=== PATIENT | female | born 1985 | race Caucasian/White ===

== ENCOUNTER 2023-03-02 10:35 | Emergency (ER) | payer OTHER, SELFPAY ==
[2023-03-02 10:51] VITALS: BP 120/94; PULSE 102; RESP 16; TEMP 36.6; O2SAT 100
--- NOTE | 2023-03-02 11:01 | ED.URI ---
HPI - URI/Sore Throat General Chief Complaint: Upper Respiratory Infection Stated Complaint: SINUS PRESSURE/DRAINAGE/SORE THROAT/STREP EXPOSURE Time Seen by Provider: 03/02/23 11:08 Source: patient and RN notes reviewed Mode of arrival: ambulatory Limitations: no limitations History of Present Illness HPI Narrative: 37-year-old female presents concern for sinus infection. Reports she is on Z-Db for 4 days and is not helping. She reports her doctor called her and Z-Db. She reports 1 week history of symptoms. Reports history of chronic sinus infections. She is not taking any other medications she reports sore worsening MD elicited complaint: cough and sore throat Related Data Allergies Allergy/AdvReac Type Severity Reaction Status Date / Time Sulfa (Sulfonamide Allergy Mild Rash Verified 03/02/23 10:46 Antibiotics) SHELLFISH Allergy Mild HIVES Uncoded 03/02/23 10:46 Review of Systems Review of Systems: CONSTITUTIONAL: Denies malaise, chills, sweats, or fever. EYES: Denies visual changes, redness, or discharge. ENT: Reports rhinorrhea, congestion, sinus pain, otalgia CARDIOVASCULAR: Denies chest pain, palpitations, or edema. RESPIRATORY: Reports cough. Denies dyspnea. GASTROINTESTINAL: Denies abdominal pain, nausea, vomiting, diarrhea SKIN: Denies rash or itching. MUSCULOSKELETAL: Denies myalgia. NEUROLOGIC: Denies headache. All systems reviewed & are unremarkable except as noted in HPI and below PMFSH Past Medical History Medical History Anxiety Asthma Bicornuate uterus Bronchitis Depression Hand, foot and mouth disease Heartburn HSV-1 (herpes simplex virus 1) infection Seasonal allergies Surgical History Surgical History H/O LEEP 2007 cervical dysplasia History of 06/01/16 History of colposcopy with cervical biopsy 2007 History of hysteroscopy 11/20/19 Hscope D&C ; irregular vaginal bleeding, endometrial abnormality, uterine prolapse History of robot-assisted laparoscopic hysterectomy 01/08/20 uterine prolapse Family History Family History Mother Diabetes mellitus Ovarian cancer Grandparent Diabetes mellitus maternal grandmother paternal grandmother Ovarian cancer maternal grandmother Father CHF (congestive heart failure) Social History Social History (Updated 10/27/22 @ 08:18 by Shantell Roberts [facility]) Smoking status: Never smoker Alcohol intake: current Drinks per week: 2 Substance use: current Substance use type: marijuana Other substance usage details: daily Lack of Transportation: No Lack of Food: Never True Current Housing: I Have Housing Concerned About Future Housing: No Difficulty Paying Gas/Electric Bills: No Difficulty Paying for Meds: No Currently Unemployed: No Education: High School Diploma/GED Difficulty w/ Childcare or Family Care: No Living arrangements: other Additional living arrangements comments: spouse Occupation/Education: occupation 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 There is no relevant family history pertinent to the presenting complaint Exam Narrative: GENERAL: Well-appearing, well-nourished, and in no acute distress. HEAD: Normocephalic EYES: PERRLA, conjunctivae clear ENT: Nares clear, turbinates edematous and erythematous. Mucous membranes moist. TM pearly [place]ingo with dull light reflex bilaterally; no tragal tenderness. Oropharynx not erythematous without lesions. Tonsils not enlarged and without exudate, no drooling, no hoarseness, no trismus, uvula
== END 2023-03-02 11:22 | disposition home or self-care (01) ==
PROVIDERS: Emergency Provider Nurse Practitioner; PCP Family Medicine
DX: J32.9 Chronic sinusitis, unspecified (principal); F12.90 Cannabis use, unspecified, uncomplicated; J45.909 Unspecified asthma, uncomplicated; R12 Heartburn; F41.9 Anxiety disorder, unspecified
CPT/HCPCS: 99213; G0463

== ENCOUNTER 2023-05-25 11:13 | Emergency (ER) | payer OTHER, SELFPAY ==
[2023-05-25 11:21] VITALS: BP 140/100; PULSE 118; RESP 18; TEMP 37; O2SAT 99
--- NOTE | 2023-05-25 11:22 | ED.URI ---
HPI - URI/Sore Throat General Chief Complaint: Upper Respiratory Infection Stated Complaint: Sore Throat;Bodyaches Time Seen by Provider: 05/25/23 11:22 Source: patient, RN notes reviewed and old records reviewed Mode of arrival: ambulatory Limitations: no limitations History of Present Illness HPI Narrative: 38-year-old female presents to [facility] with complaint of dry cough for 1 month that has become productive over the past 2 days with clear sputum. Pa steph endorses left ear pressure and headache for 2 days ago. patient denies p.m. H and endorses sulfa allergy. Patient able to tolerate fluids by mouth Related Data Home Medications Medication Instructions Recorded Confirmed No Home Medications 05/25/23 05/25/23 Allergies Allergy/AdvReac Type Severity Reaction Status Date / Time Sulfa (Sulfonamide Allergy Mild Rash Verified 05/25/23 11:33 Antibiotics) SHELLFISH Allergy Mild HIVES Uncoded 03/02/23 10:46 Review of Systems Review of Systems: All systems reviewed & are unremarkable except as noted in HPI and below Constitutional: Constitutional: Reports no additional constitutional complaints Eyes: Eyes: Reports no additional eye complaints ENT: Reports system reviewed and no additional complaints, except as documented Cardiovascular: Cardiovascular: Reports no additional cardiovascular complaints, Denies chest pain and Denies dyspnea Respiratory: Respiratory: Reports no additional respiratory complaints, Denies chest congestion, Reports cough and Denies dyspnea Musculoskeletal: Musculoskeletal: Reports no additional musculoskeletal complaints Neurologic: Reports system reviewed and no additional complaints, except as documented Psychiatric: Psychiatric: Reports no additional psychiatric complaints [facility] Past Medical History Medical History Anxiety Asthma Bicornuate uterus Bronchitis Depression Hand, foot and mouth disease Heartburn HSV-1 (herpes simplex virus 1) infection Seasonal allergies Surgical History Surgical History H/O LEEP 2007 cervical dysplasia History of 06/01/16 History of colposcopy with cervical biopsy 2007 History of hysteroscopy 11/20/19 Hscope D&C ; irregular vaginal bleeding, endometrial abnormality, uterine prolapse History of robot-assisted laparoscopic hysterectomy 01/08/20 uterine prolapse Family History Family History Mother Diabetes mellitus Ovarian cancer Grandparent Diabetes mellitus maternal grandmother paternal grandmother Ovarian cancer maternal grandmother Father CHF (congestive heart failure) Social History Social History (Updated 10/27/22 @ 08:18 by Shantell Roberts [facility]) Smoking status: Never smoker Alcohol intake: current Drinks per week: 2 Substance use: current Substance use type: marijuana Other substance usage details: daily Lack of Transportation: No Lack of Food: Never True Current Housing: I Have Housing Concerned About Future Housing: No Difficulty Paying Gas/Electric Bills: No Difficulty Paying for Meds: No Currently Unemployed: No Education: High School Diploma/GED Difficulty w/ Childcare or Family Care: No Living arrangements: other Additional living arrangements comments: spouse Occupation/Education: occupation 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 There is no relevant family history pertinent to the patient complaint. Exam Const: General: cooperative, healthy appearing, comfortable, no acu
[2023-05-25 11:48] VITALS: BP 113/88
== END 2023-05-25 12:07 | disposition home or self-care (01) ==
PROVIDERS: Emergency Provider Nurse Practitioner Family
DX: J40 Bronchitis, not specified as acute or chronic (principal); Z20.822 Contact with and (suspected) exposure to COVID-19; F12.90 Cannabis use, unspecified, uncomplicated; J45.909 Unspecified asthma, uncomplicated
CPT/HCPCS: 87081; 87426; 87804; 87880; 99213; G0463

== ENCOUNTER 2024-03-10 09:17 | Emergency (ER) | payer OTHER, SELFPAY ==
--- NOTE | 2024-03-10 09:18 | ED_ITS ---
HPI - URI/Sore Throat General Chief Complaint: Upper Respiratory Infection Stated Complaint: Sore Throat Time Seen by Provider: 03/10/24 09:18 Source: patient Mode of arrival: ambulatory Limitations: no limitations History of Present Illness HPI Narrative: Siobhan is a 38-year-old female patient presenting to the clinic today with complaints of a 2 day history of a sore throat and slight cough. She denies any fevers, runny nose, or congestion. She denies any chest pain or shortness of breath. Possible exposure to strep over the weekend. MD elicited complaint: sore throat and nasal congestion Related Data Home Medications Medication Instructions Recorded Confirmed No Home Medications 03/10/24 03/10/24 Allergies Allergy/AdvReac Type Severity Reaction Status Date / Time Sulfa (Sulfonamide Allergy Mild Rash Verified 03/10/24 09:25 Antibiotics) SHELLFISH Allergy Mild HIVES Uncoded 03/10/24 09:25 Review of Systems Review of Systems: Pertinent positives per HPI. Patient denies any fever, chills, rash, headache, visual changes, dizziness, cough, shortness of breath, chest pain, palpitations, nausea, vomiting, diarrhea, constipation, abdominal pain, or any urinary issues. [facility] Past Medical History Medical History Anxiety Asthma Bicornuate uterus Bronchitis Depression Hand, foot and mouth disease Heartburn HSV-1 (herpes simplex virus 1) infection Seasonal allergies Surgical History Surgical History H/O LEEP 2007 cervical dysplasia History of 06/01/16 History of colposcopy with cervical biopsy 2007 History of hysteroscopy 11/20/19 Hscope D&C ; irregular vaginal bleeding, endometrial abnormality, uterine prolapse History of robot-assisted laparoscopic hysterectomy 01/08/20 uterine prolapse Family History Family History Mother Diabetes mellitus Ovarian cancer Grandparent Diabetes mellitus maternal grandmother paternal grandmother Ovarian cancer maternal grandmother Father CHF (congestive heart failure) Social History Social History Smoking status: Never smoker Alcohol intake: current Drinks per week: 2 Substance use: current Substance use type: marijuana Other substance usage details: daily Lack of Transportation: No Lack of Food: Never True Current Housing: I Have Housing Concerned About Future Housing: No Difficulty Paying Gas/Electric Bills: No Difficulty Paying for Meds: No Currently Unemployed: No Education: High School Diploma/GED Difficulty w/ Childcare or Family Care: No Living arrangements: other Additional living arrangements comments: spouse Occupation/Education: occupation 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 There is no relevant family history pertinent to the patient complaint. Exam Narrative: General: Well-developed, well nourished, in no apparent distress Head: Normocephalic, atraumatic Eyes: Pupils equally round and reactive to light bilaterally, EOM intact, sclera and conjunctive clear, no discharge, lids normal Ears: TMs intact and clear, ear canals clear, no drainage, grossly hearing normal. Nose: Nares patent, no discharge, no inflammation, no sinus tenderness. Mouth: Oral pharynx mildly red without lesions or masses, good dentition, MMM. Neck: Supple, trachea midline, no enlargement of anterior or posterior cervical nodes, no thyroid masses or goiter palpable. Cardio: Regular rate and rhythm, s1 and s2 normal, no murmur appreciated. Resp: Clear to auscultation bilaterally, no rhonchi, rales, wheezing or rubs Course Course Emergency Course: Portions of this record may have been created with voice recognition software. Level of Care: Express Care Visit Vital Signs Vital signs: Vital signs reviewed MDM - URI/Sore Throat MDM Narrative Medical decision making narrative: At the time of visit patient is resting comfortably on the exam table. Patient appears to be nontoxic. Labs: Strep test was obtained and negative in the clinic today. Plan: I suspect patient has viral pharyngitis. We will send strep for culture. Supportive measures were discussed with the patient and they voiced understanding discharge instructions and agrees to treatment plan. Return precautions reviewed Differential Diagnosis Differential diagnosis: Likely upper respiratory infection, otitis media, sinusitis, viral infection, bronchitis, influenza, pharyngitis and other (COVID) Discharge Plan Discharge Clinical Impression: Pharyngitis Qualifiers: Pharyngitis/tonsillitis etiology: unspecified etiology Qualified Code(s): J02.9 - Acute pharyngitis, unspecified Patient Disposition: Home, Self-Care Condition: Stable Instructions: Antibiotic Form, Pharyngitis (ED) Additional Instructions: Strep test was negative in the clinic today. We will send strep for culture and if this comes back positive we will contact you and place you on antibiotics at that time Increase fluids and stay well hydrated Tylenol/motrin for pain/fever Flonase and OTC antihistamines as directed Vicks vapor rub to open sinuses Sinus rinses for congestion Cepacol spray, cough drops, throat lozenges, warm tea with honey/lemon, gargle salt water to soothe throat BRAT diet for diarrhea Clear liquids x 24 hours then advance as tolerated for nausea/vomiting Go to the ED if you develop a worsening in your condition- high fever not controlled by Tylenol or Motrin, dehydration, weakness, lethargy, shortness of breath, or chest pain. Follow up with your PCP in 3-5 days if symptoms persist. Prescriptions: No Action acyclovir 400 mg tablet 400 mg PO Follow-up/Referrals: UNKNOWN,DOCTOR [Non-Staff] - Stand Alone Forms: Work/School Release IP Time of Disposition: 09:36 Quality NIHSS Nursing Documentation ED NIHSS nursing documentation: reviewed/agree
[2024-03-10 09:24] VITALS: BP 123/89; PULSE 92; RESP 18; TEMP 36.2; O2SAT 98
[2024-03-10 09:26] VITALS: BP 123/89; PULSE 92; RESP 18; TEMP 36.2; O2SAT 98
[2024-03-10 09:37] LABS: EDSTREPNEGPOS1 Negative (Negative)
== END 2024-03-10 09:38 | disposition home or self-care (01) ==
PROVIDERS: Emergency Provider Nurse Practitioner Family
DX: J02.9 Acute pharyngitis, unspecified (principal); J45.909 Unspecified asthma, uncomplicated; F12.90 Cannabis use, unspecified, uncomplicated
CPT/HCPCS: 87081; 87880; 99213; G0463

== ENCOUNTER 2025-01-30 10:59 | Emergency (ER) | payer OTHER, SELFPAY ==
--- NOTE | 2025-01-30 11:02 | ED.URI ---
HPI - URI/Sore Throat General Chief Complaint: Upper Respiratory Infection Stated Complaint: SORE THROAT/FEVER/CHILLS Time Seen by Provider: 01/30/25 11:02 Source: patient Mode of arrival: ambulatory Limitations: no limitations History of Present Illness HPI Narrative: Siobhan is a 31-year-old female patient presenting to the clinic today with complaints of sore throat, fevers, and chills x1 day. She reports symptoms started yesterday. Has taken Tylenol/ibuprofen for her symptoms. Highest fever was 101? F. States she has recently been in the hospital with her grandmother who was on hospice and also states that strep is going around in the kids school. Denies any chest pain or shortness of breath. Related Data Home Medications ?Medication ?Instructions ?Recorded ?Confirmed ?Last Taken ?Type phentermine 37.5 mg capsule 37.5 mg PO DAILY 11/05/24 11/05/24 Unknown History acyclovir 400 mg tablet mg 01/30/25 Unknown History Allergies Allergy/AdvReac Type Severity Reaction Status Date / Time Sulfa (Sulfonamide Allergy Mild Rash Verified 11/05/24 08:25 Antibiotics) SHELLFISH Allergy Mild HIVES Uncoded 11/05/24 08:25 Review of Systems Review of Systems: Pertinent positives per HPI. Patient denies any fever, chills, rash, headache, visual changes, dizziness, cough, shortness of breath, chest pain, palpitations, nausea, vomiting, diarrhea, constipation, abdominal pain, or any urinary issues. PMFSH Past Medical History Medical History Hyperlipidemia Seasonal allergies Hand, foot and mouth disease Bronchitis HSV-1 (herpes simplex virus 1) infection Heartburn Bicornuate uterus Depression Asthma Anxiety Surgical History Surgical History History of hysteroscopy 11/20/19 Hscope D&C ; irregular vaginal bleeding, endometrial abnormality, uterine prolapse H/O LEEP 2007 cervical dysplasia History of colposcopy with cervical biopsy 2007 History of 06/01/16 History of robot-assisted laparoscopic hysterectomy 01/08/20 uterine prolapse Family History Family History Mother Diabetes mellitus Ovarian cancer Grandparent Diabetes mellitus maternal grandmother paternal grandmother Ovarian cancer maternal grandmother Father CHF (congestive heart failure) Social History Social History Smoking status: Never smoker Second hand tobacco smoke exposure: No Alcohol intake: former Drinks per week: 2 Substance use: current Substance use type: marijuana Other substance usage details: gummies 2-3 times a week Do You Feel Safe in your Home?: Yes Lack of Transportation: No Lack of Food: Never True Current Housing: I Have Housing Concerned About Future Housing: No Difficulty Paying Gas/Electric Bills: No Difficulty Paying for Meds: No Currently Unemployed: No Education: High School Diploma/GED Difficulty w/ Childcare or Family Care: No Living arrangements: with family Additional living arrangements comments: spouse Occupation/Education: occupation 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 There is no relevant family history pertinent to the patient complaint. Exam Narrative: General: Well-developed, well nourished, in no apparent distress Head: Normocephalic, atraumatic Eyes: Pupils equally round and reactive to light bilaterally, EOM intact, sclera and conjunctive clear, no discharge, lids normal Ears: TMs intact and clear, ear canals clear, no drainage, grossly hearing normal. Nose: Nares patent, no discharge, no inflammation, no sinus tenderness. Mouth: Oral pharynx red without lesions or masses, good dentition, MMM. Neck: Supple, trachea midline, enlargement and tenderness of anterior cervical nodes, no thyroid masses or goiter palpable. Cardio: Regular rate and rhythm, s1 and s2 normal, no murmur appreciated. Resp: Clear to auscultation bilaterally, no rhonchi, rales, wheezing or rubs Course Course Emergency Course: Portions of this record may have been created with voice recognition software. Level of Care: Express Care Visit Vital Signs Vital signs: Vital Signs Temperature 36.6 C 01/30/25 11:13 Pulse Rate 103 H 01/30/25 11:13 Respiratory Rate 16 01/30/25 11:13 Blood Pressure 117/92 H 01/30/25 11:13 Pulse Oximetry 100 01/30/25 11:13 Temperature 36.6 C 01/30/25 11:13 Pulse Rate 103 H 01/30/25 11:13 Respiratory Rate 16 01/30/25 11:13 Blood Pressure 117/92 H 01/30/25 11:13 Pulse Oximetry 100 01/30/25 11:13 Vital signs reviewed MDM - URI/Sore Throat MDM Narrative Medical decision making narrative: At the time of visit patient is resting comfortably on the exam table. Patient appears to be nontoxic. Complaints of sore throat, fevers, and chills x1 day. She reports symptoms started yesterday. Has taken Tylenol/ibuprofen for her symptoms. Highest fever was 101? F. States she has recently been in the hospital with her grandmother who was on hospice and also states that strep is going around in the kids school. Denies any chest pain or shortness of breath. On exam patient has bilateral TMs clear and intact, no nasal drainage, oropharynx red, tenderness to palpation over the cervical lymph nodes with mild cervical lymph node swelling, heart rates regular rate and rhythm, lung sounds clear. Strep, COVID, and influenza test ordered. Labs: Strep test was negative in the clinic today. We will send it for culture. COVID and influenza testing was negative as well. Plan: I suspect patient has viral pharyngitis. We will send strep for culture. Supportive measures were discussed with the patient and they voiced understanding discharge instructions and agrees to treatment plan. Return precautions reviewed Differential Diagnosis Differential diagnosis: Likely upper respiratory infection, otitis media, sinusitis, viral infection, bronchitis, influenza, pharyngitis and other (COVID) Discharge Plan Discharge Clinical Impression: Acute viral pharyngitis Patient Disposition: Home Condition: Stable Instructions: Antibiotic Form, Pharyngitis (ED) Additional Instructions: Strep test was negative in the clinic today. We will send strep for culture if this comes back positive we will contact him place you on antibiotics at that time. COVID and influenza testing was negative. No signs of bacterial infection in the clinic today. Increase fluids and stay well hydrated May take Tylenol or motrin as directed on bottle for pain/fever Cepacol spray, cough drops, throat lozenges, warm tea with honey/lemon, gargle salt water to soothe throat Go to the ED if you develop a worsening in your condition- high fever not controlled by Tylenol or Motrin, dehydration, weakness, lethargy, shortness of breath, or chest pain. Follow up with your PCP in 3-5 days if symptoms persist. Patient Language: [place] Citizen Prescriptions: No Action acyclovir 400 mg tablet phentermine 37.5 mg capsule 37.5 mg PO DAILY Rx Instructions: must administer 30 minutes before or 1-2 hours after breakfast Follow-up/Referrals: Tato,RHODA Villasenor [Primary Care Provider, Unknown] Time of Disposition: 11:41 Quality NIHSS Nursing Documentation ED NIHSS nursing documentation: reviewed/agree
[2025-01-30 11:13] VITALS: BP 117/92; PULSE 103; RESP 16; TEMP 36.6; O2SAT 100
[2025-01-30 11:27] LABS: EDSTREPNEGPOS1 Negative (Negative)
[2025-01-30 12:08] LABS: EDCOVIDSCREEN Negative (Negative); EDINFLUASCREEN Negative (Negative); EDINFLUBSCREEN Negative (Negative)
== END 2025-01-30 11:55 | disposition home or self-care (01) ==
PROVIDERS: Emergency Provider Nurse Practitioner Family; PCP Nurse Practitioner Family
DX: J02.8 Acute pharyngitis due to other specified organisms (principal); Z20.822 Contact with and (suspected) exposure to COVID-19; F12.90 Cannabis use, unspecified, uncomplicated; E78.5 Hyperlipidemia, unspecified; J45.909 Unspecified asthma, uncomplicated
CPT/HCPCS: 87081; 87426; 87804; 87880; 99213; G0463